=== PATIENT | male | born 1985 | race Two or more races ===

== ENCOUNTER 2017-02-20 16:57 | Emergency (ER) | payer SELFPAY ==
[~2017-02-20] VITALS: Ht 170.2 cm; Wt 91.0 kg
[2017-02-20 17:11] VITALS: BP 121/73
[2017-02-20] MEDS ORDERED: TETANUS AND DIPHTHERIA TOX/PF 0.5ML SYR (ADULT) IM ONE (17:30)
[2017-02-20] MEDS ORDERED: TETANUS, DIPHTHERIA, PERTUSSIS VAC/PF 0.5ML (>7YR OLD) IM ONE (18:00)
[2017-02-20] MEDS ORDERED: LIDOCAINE HCL 1% 20ML VIAL (Pyxis) INJ INFIL ONE (18:30)
== END 2017-02-20 20:13 | disposition home or self-care (01) ==
LOC: ER 16:57
DX: S60.551A Superficial foreign body of right hand, initial encounter (principal); W01.110A Fall on same level from slipping, tripping and stumbling with subsequent striking against sharp glass, initial encounter; Y93.89 Activity, other specified; Y92.838 Other recreation area as the place of occurrence of the external cause
CPT/HCPCS: 20520; 73130; 90471; 90715; 99284; J3490; X7700; Z7610; 90714